=== PATIENT | male | born 1990 | race Caucasian/White ===

== ENCOUNTER 2017-04-11 10:13 | Emergency (ER) | payer OTHER ==
[2017-04-11 10:27] VITALS: RESP 16; TEMP 98.8; BMI 23.1
--- NOTE | 2017-04-11 10:56 | ED PDOC ---
Arrival/HPI - General Chief Complaint: Allergic Reaction Time Seen by Provider: 04/11/17 10:24 Historian: Patient - History of Present Illness Narrative History of Present Illness (Text): 04/11/17 10:53 27yo male with no PMhx who present with complaint of pruritic rash x 4days. States rash started the day after going to [place] [id number] [place] 4days ago. Notes that he have never been to the farm before. Took one tab of Benadryl 20minutes ago. Denies SOB, diaphoresis, chest pain, tongue swelling. Past Medical History - Provider Review Nursing Documentation Reviewed: Yes - Infectious Disease Hx of Infectious Diseases: None - Psychiatric Hx Substance Use: No - Anesthesia Hx Anesthesia: No Hx Anesthesia Reactions: No Hx Malignant Hyperthermia: No Family/Social History - Physician Review Nursing Documentation Reviewed: Yes Family/Social History: Unknown Family HX Smoking Status: Current Some Days Smoker Hx Alcohol Use: No Hx Substance Use: No Allergies/Home Meds Allergies/Adverse Reactions: Allergies No Known Allergies Allergy (Verified 04/11/17 10:52) Review of Systems - Physician Review All systems were reviewed & negative as marked: Yes - Review of Systems Constitutional: Normal Eyes: Normal ENT: Normal Respiratory: Normal Cardiovascular: Normal Gastrointestinal: Normal Genitourinary Male: Normal Musculoskeletal: Normal Skin: Rash, Pruritis Neurological: Normal Endocrine: Normal Hemo/Lymphatic: Normal Psychiatric: Normal Physical Exam Vital Signs Temp Pulse Resp BP Pulse Ox 04/11/17 11:19 67 16 118/68 97 04/11/17 10:19 98.8 F 73 16 131/84 99 04/11/17 10:17 97.5 F L 82 18 131/84 99 Temperature: Afebrile Blood Pressure: Normal Pulse: Regular Respiratory Rate: Normal Appearance: Positive for: Well-Appearing, Non-Toxic, Comfortable Pain Distress: None Mental Status: Positive for: Alert and Oriented X 3 - Systems Exam Head: Present: Atraumatic, Normocephalic Pupils: Present: PERRL Extroacular Muscles: Present: EOMI Conjunctiva: Present: Normal Mouth: Present: Moist Mucous Membranes Neck: Present: Normal Range of Motion Respiratory/Chest: Present: Clear to Auscultation, Good Air Exchange. No: Respiratory Distress, Accessory Muscle Use Cardiovascular: Present: Regular Rate and Rhythm, Normal S1, S2. No: Murmurs Abdomen: Present: Normal Bowel Sounds. No: Tenderness, Distention, Peritoneal Signs Back: Present: Normal Inspection Upper Extremity: Present: Normal Inspection. No: Cyanosis, Edema Lower Extremity: Present: Normal Inspection. No: Edema Neurological: Present: GCS=15, CN II-XII Intact, Speech Normal Skin: Present: Warm, Dry, Normal Color. No: Rashes Psychiatric: Present: Alert, Oriented x 3, Normal Insight, Normal Concentration Medical Decision Making ED Course and Treatment: 04/11/17 19:47 PT was comfortable in ED. No stridor. No drooling. No tongue swelling noted. PT was treated and DC home with Prednisone and pepcid. Advised to continue with the Benadryl he have at home. He states he have a Spot Facer and was advised to f/u with the Spot Facer. TRT ED for any new or worsening symptoms. - Medication Orders Current Medication Orders: Discontinued Medications Famotidine (Pepcid) 40 mg PO STAT STA Stop: 04/11/17 10:53 Last Admin: 04/11/17 11:06 Dose: 40 mg Prednisone (Prednisone Tab) 60 mg PO STAT ONE Stop: 04/11/17 10:54 Last Admin: 04/11/17 11:06 Dose: 60 mg Disposition/Present on Arrival - Present on Arrival Any Indicators Present on Arrival: No History of DVT/PE: No History of Uncontrolled Diabetes: No Urinary Catheter: No History of Decub. Ulcer: No History Surgical Site Infection Following: None - Disposition Have Diagnosis and Disposition been Completed?: Yes Diagnosis: Allergic reaction Disposition: HOME/ ROUTINE Disposition Time: 11:05 Patient Plan: Discharge Condition: STABLE Discharge Instructions (ExitCare): Urticaria (ED) Additional Instructions: Follow up with your Spot Facer Return to ED for any new or worsening symptoms Prescriptions: Famotidine [Pepcid] 40 mg PO DAILY #15 tab predniSONE [Prednisone] 20 mg PO BID #8 tab Referrals: Angie Larsen, [Primary Care Provider] - Follow up with primary
[2017-04-11 11:23] VITALS: BP 118/68; PULSE 67; O2SAT 97
== END 2017-04-11 11:24 | disposition home or self-care (01) ==
LOC: ED 10:13
DX: T78.40XA Allergy, unspecified, initial encounter (principal); X58.XXXA Exposure to other specified factors, initial encounter